=== PATIENT | male | born 2000 | race African-American/Black ===

== ENCOUNTER 2022-12-20 10:04 | Emergency (ER) | payer OTHER ==
[2022-12-20 10:31] VITALS: BP 113/65; PULSE 72; RESP 18; TEMP 98.3; BMI 23.0
== END 2022-12-20 13:16 | disposition home or self-care (01) ==
LOC: JER 10:04
DX: R22.41 Localized swelling, mass and lump, right lower limb (principal)
CPT/HCPCS: 85379; 99283-25